=== PATIENT | female | born 1950 | race Caucasian/White ===

== ENCOUNTER 2022-06-09 12:11 | Outpatient (CLI) | payer MEDICARE | END 2022-06-09 12:12 | disposition home or self-care (01) | LOC: CSHCT 12:11 | PROVIDERS: ATTEND Internal Medicine Cardiovascular Disease | DX: Z01.810 Encounter for preprocedural cardiovascular examination (principal); I48.0 Paroxysmal atrial fibrillation; Z53.9 Procedure and treatment not carried out, unspecified reason | CPT/HCPCS: 71275; 82565 ==